=== PATIENT | male | born 1970 | race Two or more races ===

== ENCOUNTER 2018-05-10 20:16 | Emergency (ER) | payer MEDICAID ==
[~2018-05-10] VITALS: Ht 185.4 cm; Wt 100.0 kg
[2018-05-11] MEDS ORDERED: KETOROLAC 60MG/2ML VIAL IM ONE
[2018-05-11] MEDS ORDERED: CYCLOBENZAPRINE 10MG TABLET PO ONE
[2018-05-11 02:53] VITALS: BP 150/83
== END 2018-05-11 02:54 | disposition home or self-care (01) ==
LOC: ER 20:16
DX: S29.012A Strain of muscle and tendon of back wall of thorax, initial encounter (principal); L03.116 Cellulitis of left lower limb; X58.XXXA Exposure to other specified factors, initial encounter; Y93.89 Activity, other specified; Y92.69 Other specified industrial and construction area as the place of occurrence of the external cause; Y99.0 Civilian activity done for income or pay
CPT/HCPCS: 73630; 96372; 99283; J1885